=== PATIENT | female | born 1990 | race Caucasian/White ===

== ENCOUNTER 2024-05-22 06:43 | Inpatient (IN) | payer OTHER ==
[~2024-05-22] VITALS: Ht 157.5 cm; Wt 59.9 kg
[~2024-05-22 06:43] MED LIST: BUDESONIDE0.5 MG/21; FAMOTIDINE20 MG
[2024-05-22] MEDS ORDERED: RINGERS SOLUTION,LACTATED 1,000 ML IV SCH (06:45)
[2024-05-22] MEDS ORDERED: COLACE100 MG PO (06:55)
[2024-05-22] MEDS ORDERED: OBSTETRIX ONE1 EAC1 PO (06:55)
[2024-05-22 07:07] LABS: HEMATOCRIT 38.9 % (36.0-45.00); HEMOGLOBIN 13.4 g/dL (12.0-15.00); MEAN CELL VOLUME 88.8 fL (80.00-100.00); MEAN CORPUSCULAR HEMOGLOBIN 30.5 pg (27.00-32.0); MEAN CORPUSCULAR HGB CONC 34.3 g/dl (32.0-36.0); PLATELET COUNT 217 K/uL (150-450); RED BLOOD COUNT 4.38 M/uL (4.00-6.00)
[2024-05-22 07:47] LABS: INR < 0.93; PARTIAL THROMBOPLASTIN TIME 27.1 SECONDS (22.0-34.0); PROTHROMBIN TIME 9.8 SECONDS (9.0-11.5)
[2024-05-22 07:54] LABS: ALBUMIN 2.8 gm/dL (3.4-5.0); BILIRUBIN TOTAL 0.3 mg/dL (0.3-1.2); CALCIUM 8.8 mg/dL (8.5-10.1); CREATININE SERUM 0.41 mg/dL (0.55-1.02); GFR 177.58; GLOBULINA 3.8 G/DL (2.4-3.5); POTASSIUM 3.86 mEq/L (3.5-5.1); TOTAL PROTEIN 6.6 gm/dL (6.4-8.2)
[2024-05-22] MEDS ORDERED: MORPHINE SULFATE 4 MG/ML VIAL IV ONE (08:30)
[2024-05-22] MEDS ORDERED: OXYTOCIN 1,000 ML IV SCH (10:30)
[2024-05-22] MEDS ORDERED: OxyCODONE HCL/APAP UD (PERCOCET) PO PRN (10:30)
[2024-05-22] MEDS ORDERED: IBUprofen 400 MG TABLET PO PRN (10:30)
[2024-05-22] MEDS ORDERED: ERYTHROMYCIN BASE 1 GM TUBE OP ONE (12:15)
[2024-05-22] MEDS ORDERED: OXYTOCIN 10 UNITS/ML VIAL IV ONE (12:15)
[2024-05-22] MEDS ORDERED: CHLORHEXIDINE GLUCONATE 120 ML BOTTLE TOP ONE (12:15)
== END 2024-05-24 11:10 | disposition home or self-care (01) | DRG 807 ==
LOC: OB/GYN 06:43 → LDR 06:43 → OB/GYN 10:03
PROVIDERS: Obstetrics & Gynecology Maternal & Fetal Medicine; ADMIT Obstetrics & Gynecology Gynecology; ATTEND Obstetrics & Gynecology Gynecology
PROC: 10E0XZZ Delivery of Products of Conception, External Approach (ICD-10-PCS; principal; 2024-05-22)
PROC: 0HQ9XZZ Repair Perineum Skin, External Approach (ICD-10-PCS; 2024-05-22)
PROC: 0UQMXZZ Repair Vulva, External Approach (ICD-10-PCS; 2024-05-22)
PROC: 4A1HXCZ Monitoring of Products of Conception, Cardiac Rate, External Approach (ICD-10-PCS; 2024-05-22)
DX: O70.0 First degree perineal laceration during delivery (principal); Z37.0 Single live birth; O71.82 Other specified trauma to perineum and vulva; Z3A.38 38 weeks gestation of pregnancy; Z20.822 Contact with and (suspected) exposure to COVID-19